=== PATIENT | male | born 1990 | race Caucasian/White ===

== ENCOUNTER → 2016-03-09 | Outpatient (CLI) | payer BC ==
[2016-03-09 18:26] LABS: BASO % 0.4 %; BASO ABS # 0.02 K/uL (0-0.2); COMPLETE YES; HEMATOCRIT 39.4 % (42-52); IG% 0.2 %; LYMPH % 32.8 %; LYMPH ABS # 1.62 K/uL (1.2-3.4); MEAN CELL VOLUME 89.3 fL (80-100); MEAN CORPUSCULAR HEMOGLOBIN 32.7 pg (25-34); MEAN CORPUSCULAR HGB CONC 36.5 g/dl (32-36); MEAN PLATELET VOLUME 10.7 fL (7.4-10.4); MONO % 5.1 %; NEUT % 58.5 %; PLATELET COUNT 228 K/uL (130-400); RED BLOOD COUNT 4.41 M/uL (4.7-6.1); WHITE BLOOD COUNT 4.94 K/uL (4.8-10.8)
== END | disposition home or self-care (01) ==
LOC: C.LABSPEC 10:58
PROVIDERS: ATTEND Internal Medicine
DX: M25.50 Pain in unspecified joint (principal)

== ENCOUNTER → 2017-09-28 | Outpatient (CLI) | payer BC ==
[2017-09-28 13:56] LABS: CHOLESTEROL 145 mg/dl (0-200); GLUCOSE,FASTING 78 mg/dl (70-99); LDL CHOLESTEROL (DIRECT) 100 mg/dl
== END | disposition home or self-care (01) ==
LOC: C.LABSPEC 12:55
PROVIDERS: ATTEND Internal Medicine
DX: Z00.00 Encounter for general adult medical examination without abnormal findings (principal)